=== PATIENT | female | born 1935 | race Caucasian/White ===

== ENCOUNTER 2017-12-28 04:20 | Inpatient (IN) | payer OTHER ==
[~2017-12-28] VITALS: Ht 157.5 cm; Wt 61.2 kg
--- NOTE | ~2017-12-28 | 2DMMODE ---
[facility] [email or web address] [address] 2 D/M-MODE ECHOCARDIOGRAM Name: ZULEIMA PLATT Room #: 205-P ADM IN .R.#: [id number] Admission: 12/28/17 Attend Phys: Vincent Julien MD Discharge: Date of : 35 Date of Service: 12/28/17 0929 Report #: [id number] THIS REPORT FOR: //name// APPROVED REPORT Study performed: 12/28/2017 08:38:47 EXAM: Comprehensive 2D, Doppler, and color-flow Echocardiogram Patient Location: Bedside Room #: [facility] Status: routine BSA: 1.62 HR: 75 bpm BP: 115/59 mmHg Rhythm: Sinus arrhythmia Other Information Study Quality: Adequate/no patient cooperation. Limited movement. On BiPAP Indications Elevated troponin, short of breath. Hx: CVA HTN HLP 2D Dimensions RVDd: 29.37 mm IVSd: 12.14 (7-11mm) LVOT Diam: 18.88 (18-24mm) LVDd: 41.54 mm PWd: 8.42 (7-11mm) Ascending Ao: 26.88 (22-36mm) LVDs: 34.25 (25-40mm) Aortic Root: 26.92 mm Volumes Left Atrial Volume (Systole) Single Plane 4CH: 53.98 mL Single Plane 2CH: 54.32 mL LA ESV Index: 36.00 mL/m2 Aortic Valve AoV Peak Marcelino.: 1.31 m/s AO Peak Gr.: 6.91 mmHg LVOT Max P.18 mmHg LVOT Max V: 0.74 m/s GÓMEZ Vmax: 1.57 cm2 Mitral Valve E/A Ratio: 1.6 MV Decel. Time: 162.85 ms [facility] [address] [place] [address] 2 D/M-MODE ECHOCARDIOGRAM Name: ZULEIMA PLATT Room #: 205-[facility] IN ..#: [id number] Admission: 12/28/17 Attend Phys: Vincent Julien MD Discharge: Date of : 35 Date of Service: 12/28/17 0929 Report #: [id number] MV E Max Marcelino.: 1.31 m/s MV A Marcelino.: 0.84 m/s MV PHT: 47.23 ms IVRT: 48.44 ms Pulmonary Valve PV Peak Marcelino.: 0.93 m/s PV Peak Gr.: 3.44 mmHg Pulmonary Vein P Vein S: 0.40 m/s P Vein D: 0.63 m/s P Vein S/D Ratio: 0.63 Tricuspid Valve TR Peak Marcelino.: 3.01 m/s RAP Estimate: 5.00 mmHg TR Peak Gr.: 36.26 mmHg PA Pressure: 41.00 mmHg Left Ventricle The left ventricle is normal size. Hypokinesis of inferolateral wall and base of inferior wall Mild basal septal hypertrophy is present. Left ventricular systolic function is mildly decreased. LVEF is 45-50%. Right Ventricle The right ventricle is normal size. The right ventricular systolic function is normal. Atria Left atrium is dilated. The right atrium size is normal. Aortic Valve The Aortic valve is mildly sclerotic. Trace to mild aortic regurgitation. There is no aortic valvular stenosis. Mitral Valve Moderate mitral annular calcification. Moderate mitral regurgitation. No evidence of mitral valve stenosis. Tricuspid Valve The tricuspid valve is normal in structure. Mild tricuspid regurgitation. Estimated PAP is 40-45mmHg. Pulmonic Valve The pulmonary valve is normal in structure. Trace pulmonic regurgitation. [facility] [address] [place] [address] 2 D/M-MODE [facility]ARDIOGRAM [facility]: [facility]P [facility] IN .R.#: [id number] Admission: 12/28/17 Attend Phys: Vincent Julien MD Discharge: Date of : 35 Date of Service: 12/28/17 0929 Report #: [id number] Great Vessels The aortic root is normal in size. IVC is normal in size and collapses >50% with inspiration. Pericardium There is no pericardial effusion. Right pleural effusion noted. <Conclusion> Left ventricular systolic function is mildly decreased. Hypokinesis of inferolateral wall and base of inferior wall LVEF is 45-50%. Left atrium is dilated. The aortic valve is mildly sclerotic. Trace to mild aortic regurgitation, no stenosis. Moderate mitral annular calcification. Moderate mitral regurgitation. Mild tricuspid regurgitation. Estimated pulmonary artery pressure of 40-45mmHg. There is no pericardial effusion. <ELECTRONICALLY SIGNED> By: Lazarus Olivera MD, FACC 12/28/17928 8 8 Lazarus Olivera MD, FACC /INF
--- NOTE | ~2017-12-28 | EKG ---
[address] [place] [address] ELECTROCARDIOGRAM REPORT Name: ZULEIMA PLATT Room #: 205- ADM IN M.R.#: [id number] Admission: 12/28/17 Attend Phys: Vincent Julien MD Discharge: Date of : 35 Report #: [id number] THIS REPORT FOR: //name// [facility] Test Date: 2017-12-28 Test Time: 07:33:52 Pat Name: ZULEIMA PLATT Department: Room: 205 Gender: F [employer]: HELIO : 1935 Requested By: Ny Pearl Order Number: [id number] MD: Lazarus Olivera Measurements Intervals [place] Rate: 72 P: 82 WV: 156 QRS: 40 QRSD: 106 T: 35 QT: 491 QTc: 538 Interpretive Statements Sinus rhythm Early R-wave progression Nonspecific ST segment abnormality Prolonged QT interval No previous ECG available for comparison Electronically Signed On 12-28-2017 7:58:30 YARDAGE ESTIMATOR by Lazarus Olivera [email or web address] <ELECTRONICALLY SIGNED> By: Lazarus Olivera MD, [facility] 12/28/17 0758 0733 07 Lazarus Olivera MD, FACC /EPI
--- NOTE | ~2017-12-28 | HC ---
[facility] [place] [address] CONSULTATION Name: ZULEIMA PLATT Room #: 205-P [facility] IN M.R.#: [id number] Admission: 12/28/17 Attend Phys: Vincent Julien MD Discharge: 12/30/17 Date of : 35 Report #: [id number] THIS REPORT FOR: //name// CC: Vincent Julien MD FAM unknown REQUESTING PHYSICIAN: Vincent Julien MD CHIEF COMPLAINT: New stroke. HISTORY OF PRESENT ILLNESS: The patient is an 82-year-old female who presented on the what appeared to be new cerebrovascular accident, also probable NSTEMI with significantly elevated troponin. The patient subsequently has had a decline in overall status and has required BiPAP for hypoxic respiratory failure. However, family and patient had wished to pursue comfort measures at this time and a palliative approach. I did discuss with the patient's family as the patient has not of attention level enough to discuss with me or answer questions. The patient's family is again amenable to DNR status and again wanting to support comfort measures only. PAST MEDICAL HISTORY: Significant for hypertension, hyperlipidemia, cerebrovascular disease, atrial fibrillation, coronary artery disease, osteoarthritis, osteoporosis. PAST SURGICAL HISTORY: Appendectomy, wrist arthroscopy, knee arthroscopy. ALLERGIES: LIPITOR, SULFA. CODE STATUS: DNR. SOCIAL HISTORY: Multiple family members present and DPOA is present. FAMILY HISTORY: Noncontributory. REVIEW OF SYSTEMS: Unable to obtain due to medical condition. PHYSICAL EXAMINATION: VITAL SIGNS: Temperature 37.6, pulse 78, respirations 26, blood pressure 120/65, 93% on nonrebreather. GENERAL: She is not alert, unable to assess her orientation level. She will not awaken and answer questions at this time. HEENT: When she does open her eyes, no apparent scleral icterus, no conjunctival injection. CARDIOVASCULAR: Tachycardic with murmur present. RESPIRATORY: Bibasilar rales, otherwise clear to auscultation. ABDOMEN: Soft, mild distention. Diminished bowel sounds throughout. [facility] [address] [place] [address] CONSULTATION Name: ZULEIMA PLATT Room #: [address] [place] [address] IN M.R.#: [id number] Admission: 12/28/17 Attend Phys: Vincent Julien MD Discharge: 12/30/17 Date of : 35 Report #: [id number] EXTREMITIES: Good pulses 2/4 in all extremities currently. LABORATORY DATA: Hemoglobin at 11.3, white blood cells 24.8; creatinine 1.1, sodium 147, potassium 3.3. Troponin is 36. ASSESSMENT AND PLAN: 1. Cerebrovascular accident, appears to be in end of life situation. I agree with current management. She is currently on a morphine drip for pain and appears to be doing reasonably well. However, I do believe we can increase her overall drip rate. I did state to the nursing staff to increase to 2 mg per hour and then bolus orders written as well. The patient has p.r.n. Ativan for anxiety related to this. Although, currently her biggest issue appears to be control of her overall air hunger and pain. I did discuss with family extensively with regards to comfort measures including decreasing down to nasal cannula for comfort. They are amenable to this at this time and also amenable to any medications despite the fact that they may speed up the end of her life, although unlikely given the small amounts that we are needing at this time. 2. Acute hypoxic respiratory failure. Again, we will wean oxygen level to support comfort, will switch to nasal cannula. 3. Non-ST elevation myocardial infarction. If continued symptoms may benefit from additional measures such as nitrate based long-term therapy for control of chest pain. 4. Dysphagia. Again discussed with family, if patient is desiring food or water that would be acceptable, but only if she desires it and to administer with small sips and small bites only. 5. I believe this patient to be certainly qualify for hospice care. I believe that she would likely benefit from inpatient palliative care at this time given her altered attention abruptly although she may be a candidate for outpatient palliative care in the near future including discussed with family, inpatient hospice admission to a hospice dedicated facility. I spent approximately 30 minutes on advanced care of planning today. Please contact me for any questions regarding this consultation. By: [id number] Yong Barroso DO /nt
[2017-12-28 04:37] VITALS: BP 115/59
[2017-12-28] MEDS ORDERED: NORVASC10 MG PO (05:36)
[2017-12-28] MEDS ORDERED: CALCIUM 500 +1 EAC5 PO (05:37)
[2017-12-28] MEDS ORDERED: ASA81BEC PO (05:37)
[2017-12-28] MEDS ORDERED: PLAVIX 75 MG TA75 M1 PO (05:38)
[2017-12-28] MEDS ORDERED: ARICEPT 5 MG TAB5 MG PO (05:38)
[2017-12-28] MEDS ORDERED: CELEXA20 MG PO (05:38)
[2017-12-28] MEDS ORDERED: LOPRESSOR25 PO (05:39)
[2017-12-28] MEDS ORDERED: COZAAR 25 MG TA25 M2 PO (05:39)
[2017-12-28] MEDS ORDERED: BACTROBAN CREAM30 G1 TOP (05:40)
[2017-12-28] MEDS ORDERED: VENTOLIN HFA 1818 GM INH (05:41)
[2017-12-28 05:57] VITALS: BP 115/59
[2017-12-28 06:27] LABS: URINE BILIRUBIN NEGATIVE (Negative); URINE BLOOD 1+ (Negative); URINE COLOR YELLOW; URINE GLUCOSE-RANDOM* NEGATIVE (Negative); URINE KETONES NEGATIVE (Negative); URINE LEUKOCYTES 2+ (Negative); URINE NITRITE NEGATIVE (Negative); URINE PROTEIN (DIPSTICK) TRACE (Negative); URINE SPECIFIC GRAVITY >= 1.030 (1.005-1.035); URINE UROBILINOGEN 0.2 E.U./dl (0.2-1.0)
[2017-12-28 06:28] LABS: URINE CLARITY SL HAZY
[2017-12-28 06:34] LABS: BE(vivo) 0.5 mmol/L (-2 to +3); HCO3 25.2 mmol/L (22.0-26.0); PCO2 40.9 mmHg (35.0-45.0); PO2 105.3 mmHg (80.0-100.0); pH 7.407 (7.360-7.450); sO2 97.9 % (92.0-98.0)
[2017-12-28 06:50] LABS: CHOLESTEROL 226 mg/dL (<200); HDL CHOLESTEROL 69 mg/dL (>40); LDL CHOLESTEROL 141 mg/dL (<100); TC:HDL 3.3 Ratio (Not establshd); TRIGLYCERIDE 80 mg/dL (<150); VLDL 16 mg/dL (<40)
[2017-12-28 07:05] LABS: HYALINE CASTS 4-10 Moderate /LPF (None Seen)
[2017-12-28 07:06] LABS: AMORPHOUS URATES Moderate /LPF (None Seen); SQUAMOUS 0-3 Few /LPF (0-3); URINE WBC >25 Many /HPF (0-5)
[2017-12-28 07:08] LABS: BACTERIA >30 Many /HPF (None Seen); URINE RBC 0-2 Rare /HPF (0-2)
[2017-12-28 16:46] VITALS: BP 132/62
[2017-12-28 19:33] VITALS: BP 121/49
[2017-12-28 20:08] LABS: GLYCOHEMOGLOBIN (HGB A1C) 6.4 % (4.8-5.6)
[2017-12-29] VITALS: BP 133/60
[2017-12-29 03:44] LABS: HEMATOCRIT 33.9 % (37.0-47.0); HEMOGLOBIN 11.3 gm/dL (12.0-15.0); MCH 32.1 pg (26.0-34.0); MCHC 33.4 g/dL (28.0-37.0); MCV 96.1 fL (80.0-100.0); RBC 3.53 mil/uL (4.20-5.00); WBC 24.8 thou/uL (4.0-11.0)
[2017-12-29 03:47] LABS: ALBUMIN 2.7 g/dL (3.4-5.0); CALCIUM 8.3 mg/dL (8.5-10.1); CREATININE 1.1 mg/dL (0.6-1.0); POTASSIUM 3.3 mmol/L (3.5-5.1); TOTAL BILIRUBIN 0.8 mg/dL (<0.1-1.0); TOTAL PROTEIN 6.2 g/dL (6.4-8.2)
[2017-12-29 04:09] LABS: FOLIC ACID 19.9 ng/mL (8.6-58.9)
[2017-12-29 05:02] VITALS: BP 130/60
[2017-12-29 07:30] VITALS: BP 132/68
[2017-12-29 11:25] VITALS: BP 120/65
== END 2017-12-30 08:10 | DRG 64 ==
LOC: 2N 04:20
PROVIDERS: Nurse Practitioner Family
PROC: 5A09357 Assistance with Respiratory Ventilation, Less than 24 Consecutive Hours, Continuous Positive Airway Pressure (ICD-10-PCS; principal; 2017-12-28)
PROC: 5A09357 Assistance with Respiratory Ventilation, Less than 24 Consecutive Hours, Continuous Positive Airway Pressure (ICD-10-PCS; 2017-12-29)
DX: I63.9 Cerebral infarction, unspecified (principal); J18.9 Pneumonia, unspecified organism; J96.01 Acute respiratory failure with hypoxia; I21.4 Non-ST elevation (NSTEMI) myocardial infarction; G45.9 Transient cerebral ischemic attack, unspecified; E87.0 Hyperosmolality and hypernatremia; G81.91 Hemiplegia, unspecified affecting right dominant side; I10 Essential (primary) hypertension; E78.5 Hyperlipidemia, unspecified; I48.91 Unspecified atrial fibrillation; I25.10 Atherosclerotic heart disease of native coronary artery without angina pectoris; M19.90 Unspecified osteoarthritis, unspecified site; M81.0 Age-related osteoporosis without current pathological fracture; Z66 Do not resuscitate; R13.10 Dysphagia, unspecified; K21.9 Gastro-esophageal reflux disease without esophagitis; F41.9 Anxiety disorder, unspecified; G47.00 Insomnia, unspecified; F03.90 Unspecified dementia, unspecified severity, without behavioral disturbance, psychotic disturbance, mood disturbance, and anxiety; E03.9 Hypothyroidism, unspecified; E87.6 Hypokalemia; Z51.5 Encounter for palliative care; Z88.2 Allergy status to sulfonamides; Z88.8 Allergy status to other drugs, medicaments and biological substances; Z90.49 Acquired absence of other specified parts of digestive tract; Z79.82 Long term (current) use of aspirin; Z79.899 Other long term (current) drug therapy; Z79.52 Long term (current) use of systemic steroids
CPT/HCPCS: 10081